=== PATIENT | female | born 1980 | race American Indian/Alaskan Native ===

== ENCOUNTER 2018-11-19 00:41 | Emergency (ER) | payer OTHER ==
[2018-11-19] MEDS ORDERED: NACL 0.9% 1000 ML 1,000 ML IV ONE (01:13)
[2018-11-19 01:45] LABS: Basophils # (Auto) 0.1 K/mm3 (0.0-0.1); Basophils % (Auto) 0.5 % (0.0-1.8); Hematocrit 43.8 % (30.3-42.9); Hemoglobin 14.9 gm/dl (10.1-14.3); Lymphocytes # (Auto) 1.7 K/mm3 (1.2-5.4); Lymphocytes % (Auto) 13.9 % (13.4-35.0); Mean Corpuscular HGB Conc 34 % (30-34); Mean Corpuscular Volume 92 fl (79-97); Monocytes # (Auto) 0.4 K/mm3 (0.0-0.8); Monocytes % (Auto) 3.3 % (0.0-7.3); Platelet Count 391 K/mm3 (140-440); Red Blood Count 4.76 M/mm3 (3.65-5.03); Red Cell Distribution Width 13.5 % (13.2-15.2)
[2018-11-19 02:07] LABS: Alanine Aminotransferase 9 units/L (7-56); Albumin 4.2 g/dL (3.9-5); BUN/Creatinine Ratio 15; Blood Urea Nitrogen 9 mg/dL (7-17); Calcium 8.9 mg/dL (8.4-10.2); Hemolysis Index 57
[2018-11-19] MEDS ORDERED: MORPHINE IV ONE ×2 (03:21→05:59)
[2018-11-19] MEDS ORDERED: ZOFRAN IV ONE ×2 (03:21→05:58)
[2018-11-19 04:39] LABS: Bacteria,Urine 1+ /HPF (Negative); Bilirubin,Urine NEG (Negative); Blood,Urine NEG (Negative); Color,Urine Yellow (Yellow); Mucus,Urine 3+ /HPF; Urobilinogen,Urine < 2.0 mg/dL (<2.0)
[2018-11-19 04:41] LABS: HCG Qualitative,Urine Negative (Negative)
--- NOTE | 2018-11-19 06:02 | Cat Scan Report ---
PROCEDURE: CT ABDOMEN PELVIS W CON TECHNIQUE: CT imaging is obtained through the abdomen and pelvis following intravenous administratio n of contrast HISTORY: RLQ pain COMPARISONS: 08/07/2018 CT and ultrasound FINDINGS: Partially visualized intrathoracic contents are unremarkable. The liver, gallbladder, pancreas, spleen, and adrenal glands are unremarkable. Kidneys show no worrisome lesions, hydronephrosis, or calculi. Urinary bladder is unremarkable. Antev erted retroflexed uterus. There is a 9 cm cystic adnexal lesion containing areas of calcification and macroscopic fat, which is not significantly changed from prior. Small and large bowel are normal in caliber. Appendix is normal. No free air, free fluid, or lymphade nopathy identified. Aorta is normal in course and caliber. Superficial soft tissues are unremarkable. No acute or aggressive appearing skeletal findings. IMPRESSION: No acute findings in the abdomen or pelvis. Normal appendix. Ovarian dermoid cyst measuring up to 9 cm is not significantly changed from prior. Consider follow-up ultrasound if there is concern for gynecologic etiology of patient's symptoms. This document is electronically signed by Wilfredo Hawkins MD., November 19 2018 06:00:39 AM ET
--- NOTE | 2018-11-19 06:17 | Emergency Department Report ---
<AMARA ELIZONDO - Last Filed: 11/19/18 06:12> ED Abdominal Pain HPI - General Chief Complaint: Abdominal Pain Stated Complaint: ABD PAIN/VOMITING Time Seen by Provider: 11/19/18 03:05 Source: patient Mode of arrival: Ambulatory Limitations: No Limitations - History of Present Illness MD Complaint: abdominal pain -: days(s) (1) Location: RLQ Radiation: back Migration to: no migration Severity: severe Severity scale (0 -10): 7 Quality: cramping, sharp Consistency: constant Improves With: nothing Worsens With: nothing Associated Symptoms: nausea, vomiting. denies: diarrhea, fever - Related Data Previous Rx's Medication Instructions Recorded Last Taken Type Ibuprofen 800 mg PO Q6H PRN #16 tablet 08/07/18 Unknown Rx Promethazine [Phenergan TAB] 25 mg PO Q6HR PRN #10 tab 08/07/18 Unknown Rx HYDROcodone/APAP 5-325 [[place] 1 each PO Q6HR PRN #10 tablet 11/19/18 Unknown Rx 5-325 mg TAB] Naproxen [Naprosyn] 500 mg PO BID #20 tablet 11/19/18 Unknown Rx Ondansetron [Zofran Odt] 4 mg PO Q6HR PRN #15 tab.rapdis 11/19/18 Unknown Rx Allergies Allergy/AdvReac Type Severity Reaction Status Date / Time No Known Allergies Allergy Verified 11/19/18 03:32 ED Review of Systems Comment: All other systems reviewed and negative Constitutional: denies: chills, fever Gastrointestinal: abdominal pain, nausea, vomiting. denies: diarrhea Genitourinary: denies: dysuria, frequency, discharge, abnormal menses ED Past Medical Hx - Past Medical History Previous Medical History?: Yes Additional medical history: ovarian cyst - Social History Smoking Status: Never Smoker Substance Use Type: Alcohol - Medications Home Medications: Home Medications Medication Instructions Recorded Confirmed Last Taken Type Ibuprofen 800 mg PO Q6H PRN #16 tablet 08/07/18 Unknown Rx Promethazine [Phenergan TAB] 25 mg PO Q6HR PRN #10 tab 08/07/18 Unknown Rx HYDROcodone/APAP 5-325 [[place] 1 each PO Q6HR PRN #10 tablet 11/19/18 Unknown Rx 5-325 mg TAB] Naproxen [Naprosyn] 500 mg PO BID #20 tablet 11/19/18 Unknown Rx Ondansetron [Zofran Odt] 4 mg PO Q6HR PRN #15 tab.rapdis 11/19/18 Unknown Rx ED Physical Exam - General Limitations: No Limitations General appearance: alert, in no apparent distress, other (in obvious pain) - Head Head exam: Present: atraumatic, normocephalic - Eye Eye exam: Present: normal appearance - ENT ENT exam: Present: mucous membranes moist - Neck Neck exam: Present: normal inspection - Respiratory Respiratory exam: Present: normal lung sounds bilaterally. Absent: respiratory distress - Cardiovascular Cardiovascular Exam: Present: regular rate, normal rhythm - GI/Abdominal GI/Abdominal exam: Present: soft, tenderness. Absent: distended - Extremities Exam Extremities exam: Present: normal inspection - Neurological Exam Neurological exam: Present: alert, oriented X3 - Psychiatric Psychiatric exam: Present: normal affect, normal mood - Skin Skin exam: Present: warm, dry, intact, normal color. Absent: rash ED Medical Decision Making - Lab Data Result diagrams: 11/19/18 01:26 11/19/18 01:26 - Differential Diagnosis appendicitis, ovarian cyst, ovarian torsion ED Disposition Clinical Impression: Ovarian cyst Qualifiers: Laterality: right Qualified Code(s): N83.201 - Unspecified ovarian cyst, right side Abdominal pain Qualifiers: Abdominal location: right lower quadrant Qualified Code(s): R10.31 - Right lowe r quadrant pain Nausea & vomiting Qualifiers: Vomiting type: unspecified Vomiting Intractability: non-intractable Qualified Code(s): R11.2 - Nausea with vomiting, unspecified Disposition: TO HOME OR SELFCARE Is pt being admited?: No Condition: Stable Instructions: Ovarian Cyst (ED), Abdominal Pain (ED) Additional Instructions: Condition to follow up with primary care in 2-3 days. Patient to follow up with [facility] in 3-5 days. Patient to return to the ER if condition worsens. Patient to take Tylenol when necessary for pain. Patient to take meds as directed. Prescriptions: Naproxen [Naprosyn] 500 mg PO BID #20 tablet HYDROcodone/APAP 5-325 [[place] 5-325 mg TAB] 1 each PO Q6HR PRN #10 tablet PRN Reason: Pain Ondansetron [Zofran Odt] 4 mg PO Q6HR PRN #15 tab.rapdis PRN Reason: Nausea And Vomiting Referrals: [facility] [Provider Group] - 3-5 Days <ASHLEY KERNLUKASZ Chavez - Last Filed: 11/19/18 08:53> ED Review of Systems ROS: Stated complaint: ABD PAIN/VOMITING Other details as noted in HPI ED Course Vital Signs 11/19/18 11/19/18 01:11 07:02 Temperature 98.6 F Pulse Rate 63 Respiratory 18 Rate Blood Pressure 212/92 O2 Sat by Pulse 100 98 Oximetry - Reevaluation(s) Reevaluation #1: Patient is signed out to me from previous ER doctor, Dr. Elizondo. Patient has a ultrasound pending. 11/19/18 06:07 I discussed all results with patient. Patient is stable for discharge. We'll initiate Dr. Elizondo's discharge. Pelvic ultrasound negative for ovarian torsion and positive for a right ovarian dermoid cyst. 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 Patient given discharge instructions. Patient voiced understanding of all instructions. 11/19/18 08:07 Patient ambulatory in ER. Patient discharged home. She tolerated by mouth intake. Appointment set up for patient with Dr. Mena at 9 AM tomorrow morning 11/19/18 08:44 ED Medical Decision Making - Lab Data Result diagrams: 11/19/18 01:26 11/19/18 01:26 - Medical Decision Making Patient is a 38-year-old female presents to emergency room with abdominal pain and nausea and vomiting. Patient had a CT of her abdomen done was negative for acute findings and was incidentally positive for a dermoid cyst on her right ovary. Ultrasound was done to rule out ovarian torsion. Ultrasound was negative for ovarian torsion and positive for a 9 cm right ovarian dermoid cyst. Patient given gynecology follow-up information. Patient given discharge instructions. Patient given medication instructions. Patient is stable for discharge. Patient able to her without difficulties and tolerated by mouth intake. Critical care attestation.: If time is entered above; I have spent that time in minutes in the direct care of this critically ill patient, excluding procedure time. ED Disposition Is pt being admited?: No Does the pt Need Aspirin: No Time of Disposition: 08:10
--- NOTE | 2018-11-19 07:30 | Ultrasound Report ---
PROCEDURE: US PELVIS DUPLEX DOPPLER COMP, US TRANSVAGINAL TECHNIQUE: Transabdominal and transvaginal grayscale, color and spectral Doppler ultrasound evaluati on of the pelvis HISTORY: RLQ pain, ovarian cyst COMPARISONS: CT abdomen and pelvis of the same date, CT and ultrasound 08/07/2018 FINDINGS: Color and spectral Doppler evaluation of both ovaries is within normal limits. A heterogeneous cystic mass with anechoic and echogenic shadowing components in the right left ovary measures up to 9 cm. O verall right ovarian measurements are 90.2 x 6.8 x 5.1 cm. The left ovary measures 3.4 x 1.9 x 2 cm. The uterus is anteverted and measures 9 x 3.5 x 4.2 cm. Myometrium is within normal limits. Endometri um is homogeneous and measures approximately 6 mm in thickness. A small volume of free fluid is noted in the pelvis. IMPRESSION: No evidence of ovarian torsion. A right ovarian dermoid measures up to 9 cm. Gynecology follow-up is recommended if not already established. This document is electronically signed by Wilfredo Hawkins MD., November 19 2018 07:27:20 AM ET
[2018-11-19] MEDS ORDERED: TORADOL IV ONE (08:20)
[2018-11-19 09:12] VITALS: BP 164/92
== END 2018-11-19 09:00 | disposition home or self-care (01) ==
LOC: ED 00:41
DX: N83.201 Unspecified ovarian cyst, right side (principal)
CPT/HCPCS: 36415; 74177; 76830; 80053; 81001; 81025; 85025; 93975; 96361; 96374; 96375; 96376; 99284; J1885; J2270; J2405; J7030; Q9967

== ENCOUNTER 2018-11-20 10:21 | Observation (INO) | payer OTHER ==
[2018-11-20] MEDS ORDERED: ZOFRAN IV PRN (10:25)
[2018-11-20] MEDS ORDERED: TYLENOL PO PRN (10:25)
[2018-11-20] MEDS ORDERED: COLACE PO PRN (10:25)
[2018-11-20] MEDS ORDERED: MYLICON PO PRN (10:25)
[2018-11-20] MEDS ORDERED: MILK OF MAGNESIA PO PRN (10:25)
[2018-11-20] MEDS ORDERED: BENADRYL PO PRN (10:25)
[2018-11-20] MEDS ORDERED: LACTATED RINGERS 1,000 ML IV SCH (12:00)
[2018-11-20 12:18] LABS: Basophils # (Auto) 0.1 K/mm3 (0.0-0.1); Basophils % (Auto) 0.8 % (0.0-1.8); Eosinophils # (Auto) 0.1 K/mm3 (0.0-0.4); Eosinophils % (Auto) 0.5 % (0.0-4.3); Hematocrit 43.1 % (30.3-42.9); Hemoglobin 14.7 gm/dl (10.1-14.3); Lymphocytes # (Auto) 2.5 K/mm3 (1.2-5.4); Lymphocytes % (Auto) 24.9 % (13.4-35.0); Mean Corpuscular HGB Conc 34 % (30-34); Mean Corpuscular Volume 93 fl (79-97); Monocytes # (Auto) 0.6 K/mm3 (0.0-0.8); Monocytes % (Auto) 5.8 % (0.0-7.3); Platelet Count 359 K/mm3 (140-440); Red Blood Count 4.64 M/mm3 (3.65-5.03); Red Cell Distribution Width 13.6 % (13.2-15.2)
[2018-11-20] MEDS ORDERED: MAXIPIME/NS 2 GM/100 ML 2 GM/100 ML BAG IV SCH (14:00)
[2018-11-20] MEDS ORDERED: FLAGYL 500 MG/100 ML 500 MG/100 ML BAG IV SCH (14:00)
--- NOTE | 2018-11-20 15:57 | History and Physical Report ---
History of Present Illness Date of examination: 11/20/18 Date of admission: 11/20/18 11:03 History of present illness: Visit Type: Acute Visit CC: cyst. History of Present Illness: pt presents for head counselor problem;c/o ovarian cyst, pt states she is in pain, pain is 10/10, Patient presents to the office after ED visit with severe persistent RLQ pain that started yesterday. US and CT scan revelaed an ~9cm Right dermoid, minimal change since 2018 however with patient complaint of sever pain and cervical motion tenderness she desires to proceed with laparoscopy and removal of ovary and other indicated procedures . Vital Signs: Patient Profile: 38 Years Old Female LMP: 09/14/2018 Height: 62 inches Weight: 252 pounds BMI: 46.09 BP sittin / 70 (left arm) Menstrual History: LMP (date): 09/14/2018 LMP - Character: normal Date of Last Pap Smear: 2016 Past History : 2 Term Births: 2 Living Children: 2 Para: 2 Aborta: 0 # 1 Delivery date: 2005 Weeks Gestation: 37 Delivery type: Infant Sex: Male weight: 4'10 Comments: hyperemeis gravidarum. 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 Past Surgical History Abnormal PAP: negative Infection History HIV Risk Eval: no Hx of STD: None Active Medications (reviewed today): JUNE 24 1-20 MG-MCG(24) ORAL TABLET (NORETHIN SINAI-ETH ESTRAD-FE) 1 tablet daily Current Allergies (reviewed today): * LATEX (Critical) Past Medical History: Reviewed history from 11/27/2016 and no changes required: morbid obesity Past Surgical History: Reviewed history from 11/27/2016 and no changes required: Negative Past Surgical History Social History: Reviewed history from 11/27/2016 and no changes required: Patient is Smoking History: Patient has never smoked. Risk Factors: PAP Smear History: Date of Last PAP Smear: 11/20/2018 Results: 2017 Previous Tobacco Use: Signed On 01/27/2018 Smoked Tobacco Use: Never smoker Smokeless Tobacco Use: Never Passive smoke exposure: no Drug use: no HIV high-risk behavior: no Previous Alcohol Use: Signed On - 01/27/2018 Alcohol use: yes Type: occ Drinks per day: <1 Exercise: no Seatbelt use: 100 % PAP Smear History: Date of Last PAP Smear: 11/20/2018 Results: 2017 Physical Exam Appearance: mild distress Other Exams Abdomen: soft, tender, bowel sounds normal, obese, +guarding and rebound Skin: no lesions Extremities: no edema Genitourinary Exam Vagina: normal appearance, no discharge, lesions. No evidence of cystocele or rectocele. Cervix: +cervical motion tenderness Uterus: unable to tolerate exam Adnexa: unable to tolerate exam Impression & Recommendations: Problem # 1: Ovarian mass (ICD-625.8) (ILV77-B69.89) Orders: Ofc Vst Est 35306 (CPT-14264) Problem # 2: Right lower quadrant pain (ICD-789.03) (COD15-P00.31) Orders: Ofc Vst Est 49743 (CPT-78850) Probable surgical abdomen.Discussed observation for proceeding surgical int ervention immediately, she was informed she may have an onfection and this may be a TOA, unlikely, however source of pain is uncertain. She will probably require removal of ovary and tube shoudl sh opt for surgical intervention. She was informed there's a small possibility of cancer. She voiced understanding and desires to proceed with surgery. She was sent to [facility] for admission until surgery can be performed. Patient voiced understanding and agrees with plan of care ...................................................................Natalie Mena MD November 20, 2018 3:55 PM Problem # 3: Irregular menses (ICD-626.4) (ELW69-B85.6) Orders: Urine Test (UPT) (CPT-24892) Ofc Vst Est 65666 (CPT-12565) The following medications were removed from the medication list: 1-20 Mg-mcg(24) Oral Tablet (Norethin sinai-eth estrad-fe) ..... 1 tablet daily Problem # 4: Obesity, morbid (ICD-278.01) (ZCS36-E06.01) Orders: Ofc Vst Est 08564 (CPT-16562) Medications Added to Medication List This Visit: 1) Naproxen Other Orders: Pap(>30yo)&HRHPV rflx (Y72445)([id number]) (CPT-73513) Medications and Allergies Allergies Allergy/AdvReac Type Severity Reaction Status Date / Time No Known Allergies Allergy Verified 11/19/18 03:32 Home Medications Medication Instructions Recorded Confirmed Last Taken Type Ibuprofen 800 mg PO Q6H PRN #16 tablet 08/07/18 Unknown Rx Promethazine [Phenergan TAB] 25 mg PO Q6HR PRN #10 tab 08/07/18 Unknown Rx HYDROcodone/APAP 5-325 [[place] 1 each PO Q6HR PRN #10 tablet 11/19/18 Unknown Rx 5-325 mg TAB] Naproxen [Naprosyn] 500 mg PO BID #20 tablet 11/19/18 Unknown Rx Ondansetron [Zofran Odt] 4 mg PO Q6HR PRN #15 tab.rapdis 11/19/18 Unknown Rx Active Meds: Active Medications Acetaminophen (Tylenol) 650 mg PO Q6H PRN PRN Reason: Pain MILD(1-3)/Fever >100.5/HAWKINS Diphenhydramine HCl (Benadryl) 25 mg PO Q6H PRN PRN Reason: Itching Docusate Sodium (Colace) 100 mg PO Q12H PRN PRN Reason: Constipation Cefepime HCl (Maxipime/Ns 2 Gm/100 Ml) 2 gm in 100 mls @ 200 mls/hr IV Q8H TAMI; Protocol Lactated Ringer's (Lactated Ringers) 1,000 mls @ 125 mls/hr IV DIRECT TAMI Last Admin: 11/20/18 15:33 Dose: 125 mls/hr Documented by: Metronidazole (Flagyl 500 Mg/100 Ml) 500 mg in 100 mls @ 100 mls/hr IV Q8HR TAMI; Protocol Last Admin: 11/20/18 15:34 Dose: 100 mls/hr Documented by: Cefazolin Sodium (Ancef/Sterile Water 2 Gm/20 Ml) 2 gm in 20 mls @ 80 mls/hr IV PREOP NR; Protocol Magnesium Hydroxide (Milk Of Magnesia) 30 ml PO QHS PRN PRN Reason: Laxative Effect Ondansetron HCl (Zofran) 4 mg IV Q6H PRN PRN Reason: Nausea And Vomiting Simethicone (Mylicon) 80 mg PO Q6H PRN PRN Reason: Gas pain Exam Vital Signs Temp Pulse Resp BP Pulse Ox 97.5 F L 73 20 110/54 100 11/20/18 11:52 11/20/18 11:52 11/20/18 11:52 11/20/18 11:52 11/20/18 11:52 Results - Labs 11/20/18 11:29 Abnormal lab results 11/20/18 Range/Units 11:29 Hgb 14.7 H (10.1-14.3) gm/dl Hct 43.1 H (30.3-42.9) %
[2018-11-20] MEDS ORDERED: ANCEF/STERILE WATER 2 GM/20 ML 2 GM/20 ML SYRINGE IV NR (16:00)
[2018-11-20] MEDS ORDERED: XYLOCAINE MPF 2% ONE (17:32)
[2018-11-20] MEDS ORDERED: SUBLIMAZE ONE ×2 (17:32→18:17)
[2018-11-20] MEDS ORDERED: ZEMURON IV ONE (17:32)
[2018-11-20] MEDS ORDERED: DIPRIVAN 10 MG/ML IV ONE (17:33)
[2018-11-20] MEDS ORDERED: VERSED ONE ×2 (17:47→19:44)
[2018-11-20] MEDS ORDERED: DECADRON ONE (18:08)
--- NOTE | 2018-11-20 18:09 | Anesthesia Consultation ---
Anesthesia Consult and Med Hx Date of service: 11/20/18 - Airway Anesthetic Teeth Evaluation: Good ROM Head & Neck: Adequate Mental/Hyoid Distance: Adequate Mallampati Class: Class III Intubation Access Assessment: Probably Good - Pulmonary Exam CTA: Yes - Cardiac Exam Cardiac Exam: RRR - Pre-Operative Health Status ASA Pre-Surgery Classification: ASA2 Proposed Anesthetic Plan: General - Pulmonary Hx Smoking: No Hx Asthma: No COPD: No - Cardiovascular System Hx Hypertension: No Hx Coronary Artery Disease: No Hx Peripheral Vascular Disease: No - Central Nervous System Hx Neuromuscular Disorder: No Hx Back Pain: No - Gastrointestinal Hx Ulcer: No Hx Gastroesophageal Reflux Disease: No - Endocrine Hx Renal Disease: No Hx End Stage Renal Disease: No - Other Systems Hx Alcohol Use: No Hx Substance Use: No Hx Cancer: No
--- NOTE | 2018-11-20 18:09 | Anesthesia Day of Surgery ---
Anesthesia Day of Surgery - Day of Surgery Patient Examined: Yes Patient H&P Reviewed: Yes Patient is NPO: Yes
[2018-11-20] MEDS ORDERED: BLOXIVERZ ONE (18:37)
[2018-11-20] MEDS ORDERED: ROBINUL ONE (18:37)
[2018-11-20] MEDS ORDERED: MARCAINE 0.5% INFILTRATI ONE ×2 (19:26→19:33)
[2018-11-20] MEDS ORDERED: DILAUDID ONE (19:31)
--- NOTE | 2018-11-20 20:05 | Operative Report ---
Operative Report Operative Report: Date: 11/20/2018 Preoperative diagnosis: 1. Large ovarian mass 2. Severe pelvic pain Postoperative diagnosis: 1. Large ovarian mass 2. Severe pelvic pain 3. Torsion of right adnexa Procedure: Laparoscopic right salpingo-oophorectomy Surgeon: Natalie Mena MD Financial Consultant: Martine Jacobson M.D. Anesthesiologist: Nestor Terry M.D. Anesthesia: Gen. endotracheal anesthesia EBL: Minimal Findings: Large necrotic right tube and ovary, grossly normal uterus left tube and ovary, grossly normal appendix Procedure: After risks, benefits, consequences, alternatives and complications were discussed patient voiced her understanding and desire to proceed, she was taken to the OR and placed in the supine position. After general anesthesia was induced, she was placed in the dorsal lithotomy position. Exam under anesthesia was unremarkable. She was then prepped and draped in the usual sterile fashion. After a timeout was performed, a Goyal catheter was introduced into the bladder with drainage of clear yellow urine. A operative speculum was introduced into the vagina, and anterior lip cervix was grasped with a single-toothed tenaculum. The uterus was sounded to 8 cm. The cervix was progressively dilated to allow the HUMI uterine manipulator. The tenaculum and speculum were removed. Sterile gloves were placed and attention was turned to the abdomen. An supraumbilical incision was made and a 5 mm Optiview trocar with scope and camera attached were placed through the incision. The abdomen was entered under direct visualization. The abdomen was then insufflated. No bowel, bladder, ureteral, or major vessel injury was noted. She was then placed in steep Trendelenburg position. The above findings were noted. An additional 11mm trocar was placed through a suprapubic midline incision made approximately 2 cm superior to the symphysis pubis. A 11 mm trocar was introduced under direct visualization. No bowel, bladder or ureteral or major vascular injury was noted. An additional 5 mm trocar was placed in the right lateral lower quadrant under direct visualization. Again no bowel, bladder, ureteral, or major vascular injury was noted. The ovary and uterus were placed in appropriate anatomical position. Once the course of the ureter was visualized to be away from the operative field, the infundibulopelvic ligament was clamped and cauterized and incised using the 5 mm LigaSure device. The remainder of the adnexa was released in a sequential manner using the 5 mm LigaSure device. Once the adnexa was released, the 11 mm trocar was removed and the incision was extended, and a 15 mm trocar was introduced under direct visualization. The tube and ovary was then placed into an Endo Catch bag was introduced through the 15 mm trocar. Then approximately 200 mL's of bloody fluid was drained from the ovary. An Endo Catch bag was elevated to the incision. The incision was further extended, the bag was opened and the specimen was removed in pieces. The Endo Catch bag remained intact while removing the specimen. The trocar was then introduced again and the pelvis was irrigated copiously with warm saline. Hemostasis was noted. There is no evidence of injury to the right ureter. Attention was turned to the adnexa where hemostasis was noted. Again no bowel, bladder or ureteral or major vascular injury was noted. The CO2 was released from the abdomen under direct visualization. All areas appeared to be hemostatic again no obvious evidence of bowel, bladder, ureteral or vascular injury. Surgicel was placed over the operative field. The 15 mm trocar was removed, and using the Kj Tellez fascial closure device the fascia was reapproximated 2 with 0 Vicryl. At this point the procedure was ended. The remaining CO2 in the abdomen was released. Patient was taken out of Trendelenburg position. The trochars were removed. The incisions were reapproximated using 4-0 Vicryl in a subcuticular manner. The incisions were then infused with half percent Marcaine without epinephrine. Then attention was turned to the vagina where the uterine manipulator was removed. No bleeding was noted from the vagina. The Goyal catheter had clear yellow urine noted to drain into the Goyal tubing as well as into the bag. Counts were correct 3 patient tolerated procedure well was taken to recovery in stable condition
[2018-11-20] MEDS: PERCOCET 5/325 PO PRN (22:09)
[2018-11-20] MEDS: NACL 0.9% 1000 ML 1,000 ML IV SCH (22:09)
[2018-11-21] MEDS: ANCEF/NS 1 GM/50 ML 1 GM/50 ML BAG IV SCH ×2 (01:24→08:43)
[2018-11-21] MEDS: PERCOCET 5/325 PO PRN (05:48)
[2018-11-21] MEDS: NACL 0.9% 1000 ML 1,000 ML IV SCH (05:52)
[2018-11-21 09:43] LABS: Hematocrit 37.3 % (30.3-42.9); Hemoglobin 12.5 gm/dl (10.1-14.3)
--- NOTE | 2018-11-21 10:43 | Discharge Summary ---
Providers - Providers Date of Admission: 11/20/18 11:03 Date of discharge: 11/21/18 Attending physician: ATA PRASAD Primary care physician: NIDA DOWNEY Hospitalization Condition: Good Procedures: [facility] Hospital course: Patient resting in bed with and sons present, no complaints. Desires d/c home Disposition: DC-01 TO HOME OR SELFCARE - Discharge Diagnoses (1) Ovarian torsion Status: Resolved Core Measure Documentation - Palliative Care Palliative Care/ Comfort Measures: Not Applicable - Core Measures Any of the following diagnoses?: none Exam - Constitutional Vitals: Temp Pulse Resp BP Pulse Ox 98.6 F 72 18 103/61 100 11/21/18 04:00 11/21/18 04:00 11/21/18 06:48 11/21/18 04:00 11/20/18 21:18 General appearance: Present: no acute distress - Neck Neck: Present: supple - Respiratory Respiratory effort: normal Respiratory: bilateral: CTA - Cardiovascular Rhythm: regular - Extremities Extremities: no ischemia, No edema - Abdominal General gastrointestinal: Present: soft, non-tender, non-distended, normal bowel sounds Female genitourinary: Present: deferred - Integumentary Integumentary: Present: clear, warm, dry. Absent: erythema (incisions C/D/I) - Psychiatric Psychiatric: appropriate mood/affect, intact judgment & insight, memory intact, cooperative Plan Activity: other (No sex, no driving, ambulate ~1mile on your property a day. ) Weight Bearing Status: Full Weight Bearing Diet: regular (Eat small meals frequently, drink 110oz water a day, void frequently. Use your incentive spirometer every hour while awake) Wound: open to air, keep clean and dry Special Instructions: no heavy lifting Follow up with: NIDA DOWNYE MD [Primary Care Provider] - 7 Days ATA PRASAD MD [Staff Physician] - 11/25/18 9:45 am ([place]) Prescriptions: Ibuprofen 800 mg PO Q6H PRN #30 tablet PRN Reason: Pain , Severe (7-10) HYDROcodone/APAP 5-325 [[place] 5-325 mg TAB] 1 each PO Q6HR PRN #6 tablet PRN Reason: Pain
[2018-11-21 12:11] VITALS: BP 94/56
[2018-11-21] MEDS ORDERED: TORADOL IV SCH (13:00)
== END 2018-11-21 11:46 | disposition home or self-care (01) ==
LOC: 3A 10:21 → UNDOADMOB 10:21 → OB 11:03
PROVIDERS: ADMIT Obstetrics & Gynecology; ATTEND Obstetrics & Gynecology
DX: N83.519 Torsion of ovary and ovarian pedicle, unspecified side (principal)
CPT/HCPCS: 36415; 58661; 84702; 85014; 85018; 85025; 86850; 86900; 86901; 87591; 88307; 96365; 96366; 96367; 96368; G0378; G0379; J0690; J0692; J1100; J1170; J2250; J2704; J2710; J3010; J7030; J7120; 88305